=== PATIENT | female | born 1970 | race African-American/Black ===

== ENCOUNTER 2022-04-28 08:04 | Day surgery (SDC) | payer OTHER ==
[2022-04-23 10:52] VITALS: BMI 26.1
[2022-04-28 08:26] VITALS: RESP 18
[2022-04-28 09:32] VITALS: TEMP 97.2
[2022-04-28 09:41] VITALS: BP 146/79; PULSE 81
== END 2022-04-28 10:14 | disposition home or self-care (01) ==
LOC: FASU-ENDO 08:04
PROVIDERS: ATTEND Internal Medicine Gastroenterology
PROC: 0DJD8ZZ Inspection of Lower Intestinal Tract, Via Natural or Artificial Opening Endoscopic (ICD-10-PCS; principal; 2022-04-28 08:58)
DX: Z12.11 Encounter for screening for malignant neoplasm of colon (principal)